=== PATIENT | male | born 1960 | race American Indian/Alaskan Native ===

== ENCOUNTER 2017-03-21 14:24 | Observation (INO) | payer BC ==
--- NOTE | 2017-03-21 15:07 | EDM.PDOC ---
ED HPI GENERAL MEDICAL PROBLEM - General Chief Complaint: Skin Complaint Stated Complaint: ABSCESS Time Seen by Provider: 03/21/17 14:34 Source of Information: Reports: Patient History Limitations: Reports: No Limitations - History of Present Illness INITIAL COMMENTS - FREE TEXT/NARRATIVE: The patient states that he has had pain in his perennial area for the past 2 weeks. The pain is made worse if he sits down. He has felt a lump in the area for the past week. No drainage. No recent fever. No prior similar symptoms. The patient was seen at [facility] earlier today. The patient states that no tests were done. Medical records faxed from [facility] indicate that the patient was prescribed clindamycin 150 mg, 2 caps po Q6h. The patient states that he was given the pills, however, he was instructed not to start the prescription until midnight tonight. The patient was given Dr. Santiago's office number, but was also sent directly to this ED. The patient indicates that he is allergic to penicillin, however, when asked about this, he states that he was told this by his mother, and has no idea what , if any, reaction he has to penicillin. The patient does not have a PCP. Right Rectal Pain Score (Numeric/FACES): 9 - Related Data Allergies Allergy/AdvReac Type Severity Reaction Status Date / Time No Known Allergies Allergy Verified 03/21/17 14:39 Home Meds: Home Meds Gabapentin [Neurontin] 300 mg PO DAILY 03/21/17 [History] Insulin Aspart [Novolog Flexpen] 30 unit SQ DAILY 03/21/17 [History] Insulin Detemir [Levemir Flextouch] 40 unit SQ DAILY 03/21/17 [History] Past Medical History Cardiovascular History: Reports: High Cholesterol, Hypertension Neurological History: Reports: CVA, Neuropathy, Diabetic Endocrine/Metabolic History: Reports: Diabetes, Type II - Past Surgical History HEENT Surgical History: Reports: Oral Surgery (Edentulous), Tonsillectomy GI Surgical History: Reports: Cholecystectomy Musculoskeletal Surgical History: Reports: ORIF (right ankle), Other (See Below ) (Right wrist pinning) Social & Family History - Family History Family Medical History: Noncontributory - Tobacco Use Smoking Status *Q: Current Every Day Smoker Years of Tobacco use: 39 Packs/Tins Daily: 0.2 Packs/Tins Daily Comment: Down from 1 ppd - Alcohol Use Alcohol Use History: Yes Alcohol Use in Last Twelve Months: No - Recreational Drug Use Recreational Drug Use: No - Living Situation & Occupation Living situation: Reports: Single, Alone Occupation: Employed ([employer]) ED ROS GENERAL - Review of Systems Review Of Systems: ROS reveals no pertinent complaints other than HPI. ED EXAM, SKIN/RASH Exam: See Below Exam Limited By: No Limitations General Appearance: Alert, WD/WN, No Apparent Distress Rectal (Males) Exam: Other (Approximately 4 cm diameter area of swelling and induration to the posterior right perineum, with pointing, however, no drainage. Minimal associated erythema. The area is tender to palpation.) Course - Vital Signs Last Recorded V/S: Last Vital Signs Temp 36.6 C 03/21/17 14:36 Pulse 97 03/21/17 14:36 Resp 14 03/21/17 14:36 BP 154/87 H 03/21/17 14:36 Pulse Ox 98 03/21/17 14:36 - Orders/Labs/Meds Orders: Active Orders 24 hr Category Date Time Status Accu Check [Blood Glucose Check, Bedside] [RC] ONETIME Care 03/21/17 15:11 Active Labs: Laboratory Tests 03/21/17 Range/Units 15:23 POC Glucose 296 H (70-105) mg/dL Meds: Medications Discontinued Medications Generic Name Dose Route Start Last Admin Trade Name Gricel PRN Reason Stop Dose Admin Insulin Human Regular 5 unit 03/21/17 15:25 03/21/17 15:33 Humulin R SUBCUT 03/21/17 15:26 5 units ONETIME STA Administration Protocol - Re-Assessments/Exams Free Text/Narrative Re-Assessment/Exam: 03/21/17 15:[address] Santiago at 14:57. Unfortunately, he is not financial operations clerk, and not in the office today. He recommended that I contact Dr. Issa, who is on- call today. Case then discussed with Dr. Issa at 15:02. He is currently in the operating room, but will come by the ED to evaluate the patient when he is finished. 03/21/17 15:26 The patient's Accu-Chek is 296, however, the patient tells us that he ordinarily runs around 300. I do not want to drop the patient's blood sugar down into the 200s, as he would not likely tolerate that well, therefore I have ordered only 5 units regular insulin, in an attempt to reduce his blood sugar down to about 250. 03/21/17 15:47 Dr. Issa is here to evaluate the patient. Departure - Departure Time of Disposition: 15:50 Disposition: DC/Tfer to [facility] Access [facility] Condition: Fair Clinical Impression: Abscess of perineum - Discharge Information - My Orders Last 24 Hours: My Active Orders 03/21/17 15:11 Accu Check [Blood Glucose Check, Bedside] [RC] ONETIME - Assessment/Plan Last 24 Hours: My Active Orders 03/21/17 15:11 Accu Check [Blood Glucose Check, Bedside] [RC] ONETIME
[2017-03-21] MEDS ORDERED: Insulin Regular, Human 100 Units/ML 3 ML Vial SUBCUT STA (15:25)
[2017-03-21] MEDS ORDERED: Lidocaine 1% 30 ML SDV ONE (16:04)
--- NOTE | 2017-03-21 16:14 | PCM.PREANE ---
Preanesthetic Assessment - Procedure Proposed Procedure: perineal abscess removal - Anesthesia/Transfusion/Family Hx Anesthesia History: Prior Anesthesia Without Reaction Family History of Anesthesia Reaction: No Transfusion History: No Prior Transfusion(s) - Review of Systems General: No Symptoms Pulmonary: No Symptoms Cardiovascular: Other (HTN) Gastrointestinal: No Symptoms Neurological: Other (stroke about 6 years ago- does not currently take a blood thinner like he is supposed to.) Other: Reports: Diabetes - Physical Assessment NPO Status Date: 03/21/17 NPO Status Time: 10:30 (eggs and biscuits ) O2 Sat by Pulse Oximetry: 98 Respiratory Rate: 14 Vital Signs: Last Vital Signs Temp 36.6 C 03/21/17 14:36 Pulse 97 03/21/17 14:36 Resp 14 03/21/17 14:36 BP 154/87 H 03/21/17 14:36 Pulse Ox 98 03/21/17 14:36 Height: 1.8 m Weight: 127.006 kg ASA Class: 2E Mental Status: Alert & Oriented x3 Airway Class: Mallampati = 2 Dentition: Reports: Edentulous Thyro-Mental Finger Breadths: 3 Mouth Opening Finger Breadths: 3 ROM/Head Extension: Full Lungs: Clear to Auscultation, Normal Respiratory Effort Cardiovascular: Regular Rate, Regular Rhythm - Lab Values: Laboratory Last Values POC Glucose 296 mg/dL (70-105) H 03/21/17 15:23 - Allergies Allergies/Adverse Reactions: Allergies Allergy/AdvReac Type Severity Reaction Status Date / Time No Known Allergies Allergy Verified 03/21/17 14:39 - Blood Blood Available: No Product(s) Available: None - Anesthesia Plan Pre-Op Medication Ordered: None - Acknowledgements Anesthesia Type Planned: MAC Pt an Appropriate Candidate for the Planned Anesthesia: Yes Alternatives and Risks of Anesthesia Discussed w Pt/Guardian: Yes Pt/Guardian Understands and Agrees with Anesthesia Plan: Yes PreAnesthesia Questionnaire Cardiovascular History: Reports: High Cholesterol, Hypertension Neurological History: Reports: CVA, Neuropathy, Diabetic Endocrine/Metabolic History: Reports: Diabetes, Type II - Past Surgical History HEENT Surgical History: Reports: Oral Surgery (Edentulous), Tonsillectomy GI Surgical History: Reports: Cholecystectomy Musculoskeletal Surgical History: Reports: ORIF (right ankle), Other (See Below ) (Right wrist pinning) - SUBSTANCE USE Smoking Status *Q: Current Every Day Smoker (3cig/day for 6 years) Tobacco Use Within Last Twelve Months: Cigarettes Second Hand Smoke Exposure: No Recreational Drug Use History: No - HOME MEDS Home Medications: Home Meds Gabapentin [Neurontin] 300 mg PO DAILY 03/21/17 [History] Insulin Aspart [Novolog Flexpen] 30 unit SQ DAILY 03/21/17 [History] Insulin Detemir [Levemir Flextouch] 40 unit SQ DAILY 03/21/17 [History] - CURRENT (IN HOUSE) MEDS Current Meds: Current Medications Discontinued Medications Insulin Human Regular (Humulin R) 5 unit SUBCUT ONETIME STA PRN Reason: Protocol Stop: 03/21/17 15:26 Last Admin: 03/21/17 15:33 Dose: 5 units
[2017-03-21] MEDS ORDERED: Midazolam 1 MG/ML 2 ML SDV ONE (16:40)
[2017-03-21] MEDS ORDERED: Propofol 200 MG/20 ML SDV ONE (16:40)
[2017-03-21] MEDS ORDERED: Ketamine 500 mg/10 ML MDV ONE (16:40)
[2017-03-21] MEDS ORDERED: fentaNYL 100 MCG/2 ML SDV ONE (16:40)
[2017-03-21] MEDS ORDERED: Lidocaine 1% 4 ML ONE (17:00)
--- NOTE | 2017-03-21 17:13 | PCM.OPNOTE ---
- General Post-Op/Procedure Note Date of Surgery/Procedure: 03/21/17 Operative Procedure(s): I&D per rectal abscess Pre Op Diagnosis: radha rectal abscess Post-Op Diagnosis: Same Anesthesia Technique: MAC Primary Surgeon: Jaden Issa EBL in mLs: 10 Complications: None Condition: Good
[2017-03-21] MEDS ORDERED: Lactated Ringers 1,000 ML ONE (17:14)
[2017-03-21] MEDS ORDERED: fentaNYL 100 MCG/2 ML SDV IVPUSH PRN (17:22)
--- NOTE | 2017-03-21 17:24 | PCM48HPAN ---
Post Anesthesia Note - EVALUATION WITHIN 48HRS OF ANESTHETIC Vital Signs in Normal Range: Yes Patient Participated in Evaluation: Yes Respiratory Function Stable: Yes Airway Patent: Yes Cardiovascular Function Stable: Yes Hydration Status Stable: Yes Pain Control Satisfactory: Yes Nausea and Vomiting Control Satisfactory: Yes Mental Status Recovered: Yes - COMMENTS/OBSERVATIONS Free Text/Narrative:: patient doing well. Awake following commands. room air. tolerated procedure well
--- NOTE | 2017-03-21 17:34 | PCM.CONS ---
H&P History of Present Illness - General Date of Service: 03/21/17 Admit Problem/Dx: Admission Diagnosis/Problem Admission Diagnosis/Problem Diabetes mellitus type 2 Source of Information: Patient, Old Records, Provider, RN, RN Notes Reviewed, Other History Limitations: Reports: No Limitations - History of Present Illness Initial Comments - Free Text/Narative: Nathaniel Chery is a 57 yo male who presented to our ED today (03/21/17) with pain in his perianal area for the past 2 weeks that is worse when sitting down. He reports feeling a lump in the area but no drainage. Denies recent fever or similar symptoms in the past. He was reportedly seen at [facility] earlier today, however no tests were performed and no labs were obtained. [place] notes which were faxed show that he was prescribed clindamycin 150mg 2 caps Q6hr and told to begin treatment at midnight. He was given Dr. Santiago's office number and told to present to our ED. In the ED he was afebrile with a temp of 36.6 degrees C. Pulse was 97. Respirations 14. BP 154/87. Pulse Ox 98%. Bedside glucose was checked and found to be 296 mg/dl. 5 units of Humulin R were given. A 4cm diameter area of swelling and induration was noted to the posterior right perineum with no drainage and minimal erythema. It was tender to palpation. Dr. Issa, general surgeon, was consulted by ED provider. Nathaniel was taken back to surgical suite for I&D. EBL was 10mL. Labs were ordered by Dr. Issa post-surgical: WBC was elevated at 10.99. Hemoglobin was good at 13.7. Hematocrit 40.6. He is normocytic. Neutrophils were elevated at 68.5%. Sodium was good at 138. Potassium 3.7. Chloride 104. Carbon dioxide 23. Anion gap good at 14.7. BUN 11. Creatinine 0.6. EGFR is greater than 60. Serum glucose was high at 265. A1c was high at 10.4. Calcium good at 8.7. AST was low at 11. ALT good at 33. Alkaline phosphatase elevated at 121. Albumin was low at 3.2. He carries a history of HLD, HTN, CVA approx. 6 years ago, Diabetic neuropathy, and Type II DM. He reportedly is supposed to be taking aspirin, lisinopril, and invokana, however he is not. It also apears he has not been taking his insulin as prescribed. He is a current daily smoker, consuming 3 cigarettes per day for the last 6 years. Hospital medicine is consulted for diabetes management. Right Rectal Pain Score (Numeric/FACES): 9 - Related Data Allergies/Adverse Reactions: Allergies Allergy/AdvReac Type Severity Reaction Status Date / Time No Known Allergies Allergy Verified 03/21/17 19:54 Home Medications: Home Meds Aspirin 81 mg PO DAILY 03/21/17 [History] Gabapentin [Neurontin] 300 mg PO DAILY 03/21/17 [History] Insulin Aspart [Novolog Flexpen] 30 unit SQ DAILY 03/21/17 [History] Insulin Detemir [Levemir Flextouch] 40 unit SQ DAILY 03/21/17 [History] Lisinopril [Prinivil] 10 mg PO DAILY 03/21/17 [History] atorvaSTATin [Lipitor] 10 mg PO BEDTIME 03/21/17 [History] Past Medical History Cardiovascular History: Reports: High Cholesterol, Hypertension Neurological History: Reports: CVA, Neuropathy, Diabetic Endocrine/Metabolic History: Reports: Diabetes, Type II - Past Surgical History HEENT Surgical History: Reports: Oral Surgery (Edentulous), Tonsillectomy GI Surgical History: Reports: Cholecystectomy Musculoskeletal Surgical History: Reports: ORIF (right ankle), Other (See Below ) (Right wrist pinning) Social & Family History - Family History Family Medical History: Noncontributory - Tobacco Use Smoking Status *Q: Current Every Day Smoker (3cig/day for 6 years) Years of Tobacco use: 39 Packs/Tins Daily: 0.2 Second Hand Smoke Exposure: No - Caffeine Use Caffeine Use: Reports: Coffee - Recreational Drug Use Recreational Drug Use: No - Living Situation & Occupation Living situation: Reports: Single, Alone Occupation: Employed ([employer]) H&P Review of Systems - Review of Systems: Review Of Systems: See Below Free Text/Narrative: In to see Nathaniel. He is lying in bed in pain is controlled. We had a lengthy conversation about his diabetes as A1c is quite high. I reviewed his previous clinic notes and it does appear that his A1c has been raising around 1 point per year. I selenium complications of diabetes including worsening peripheral neuropathy, poor circulation, vision problems, and possible amputation. I explained how sugars affect wound healing. Reports his blood sugars normally run around 300 but have been as high as 500. 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 We discussed the option of oral diabetic medications and he states he was on one, however his stomach did not agree with it. I asked if it was metformin and he states "yes it was". I was able to find a list of medications he is prescribed. We went down them one by one. He is currently only taking his long and short acting insulin. He reports he checks his sugars occasionally "when he thinks of it." He also reportedly takes his Levemir at night and NovoLog in the morning one time. He is prescribed Invokana, however he has reported not been taking this for some time because he "forgets to take it." He is also prescribed aspirin, statin, and lisinopril. He reports he hasn't taken these for at least 3 or more months. I explained to him the importance of these drugs. I asked him why he doesn't take them regularly and he states he forgets. I asked him what we could do to make him not forget and he suggested a pillbox. This seems like a reasonable option for him and I suggested he pick one up. We will restart his aspirin, lisinopril, and statin today, as well as his long-acting insulin. I will put him on sliding scale NovoLog and 4 times a day glucose checks to attempt to find a baseline. General: Reports: No Symptoms. Denies: Fever, Chills, Malaise, Weakness, Fatigue HEENT: Reports: No Symptoms. Denies: Dysphasia, Ear Pain, Eye Pain, Headaches, Rhinitis, Sinus Congestion, Sore Throat, Visual Changes Pulmonary: Reports: No Symptoms. Denies: Shortness of Breath, Wheezing, Pleuritic Chest Pain, Cough, Sputum Cardiovascular: Reports: No Symptoms. Denies: Chest Pain, Palpitations, Dyspnea on Exertion, Orthopnea Gastrointestinal: Reports: No Symptoms. Denies: Abdominal Pain, Constipation, Diarrhea, Hematemesis, Hematochezia, Melena, Nausea, Vomiting Genitourinary: Reports: No Symptoms. Denies: Dysuria, Frequency, Burning, Pain , Urgency Musculoskeletal: Reports: No Symptoms, Hand Pain (diabetic neuropathy), Leg Pain (diabetic neuropathy). Denies: Back Pain, Joint Swelling, Muscle Pain, Muscle Stiffness Skin: Reports: Other (Pain in buttocks - s/p I&D) Psychiatric: Reports: No Symptoms Neurological: Reports: No Symptoms Hematologic/Lymphatic: Reports: No Symptoms Immunologic: Reports: No Symptoms Exam - Exam Exam: See Below - Vital Signs Vital Signs: Last Vital Signs Temp 97.8 F 03/21/17 14:36 Pulse 97 03/21/17 14:36 Resp 14 03/21/17 16:18 BP 154/87 H 03/21/17 14:36 Pulse Ox 98 03/21/17 16:18 Weight: 280 lb - Exam Quality Assessment: Other (obese) General: Alert, Oriented, Cooperative. No: Mild Distress HEENT: PERRLA, Hearing Intact, Mucosa Moist & [place], Nares Patent, Normal Nasal Septum, Posterior Pharynx Clear, Conjunctiva Clear, EOMI, EACs Clear, TMs Clear Neck: Supple, Trachea Midline. No: JVD, Thyromegaly Lungs: Clear to Auscultation, Normal Respiratory Effort Cardiovascular: Regular Rate, Regular Rhythm GI/Abdominal Exam: Normal Bowel Sounds, Soft, Non-Tender, No Organomegaly, No Distention, No Abnormal Bruit, No Mass, Pelvis Stable (Male) Exam: Deferred Rectal (Males) Exam: Deferred Back Exam: Normal Inspection, Decreased Range of Motion Peripheral Pulses: 1+: Posterior Tibial (L), Posterior Tibial (R), Dorsalis Pedis (L), Dorsalis Pedis (R), 2+: Radial (L), Radial (R) Skin: Warm, Dry, Other (Bandage on perianal area. Dry and intact. ) Neurological: Cranial Nerves Intact (grossly ) Neuro Extensive - Mental Status: Alert, Oriented x3, Normal Mood/Affect, Normal Cognition, Memory Intact Neuro Extensive - Motor, Sensory, Reflexes: CN II-XII Intact (grossly ) Psychiatric: Alert, Normal Affect, Normal Mood - Patient Data Lab Results Last 24 hrs: Laboratory Results - last 24 hr 03/21/17 Range/Units 15:23 POC Glucose 296 H (70-105) mg/dL Result Diagrams: 03/21/17 17:45 03/21/17 17:45 Consult PN Assessment/Plan POD#: 0 (1) Abscess of perineum SNOMED Code(s): 96935804 Code(s): L02.215 - CUTANEOUS ABSCESS OF PERINEUM Priority: High Current Visit: Yes (2) Status post incision and drainage SNOMED Code(s): 694115820 Code(s): Z98.890 - OTHER SPECIFIED POSTPROCEDURAL STATES Priority: High Current Visit: Yes (3) HLD (hyperlipidemia) SNOMED Code(s): 64377513 Code(s): E78.5 - HYPERLIPIDEMIA, UNSPECIFIED Priority: Medium Current Visit: Yes Qualifiers: Hyperlipidemia type: unspecified Qualified Code(s): E78.5 - Hyperlipidemia , unspecified (4) HTN (hypertension) SNOMED Code(s): 09540976 Code(s): I10 - ESSENTIAL (PRIMARY) HYPERTENSION Priority: Medium Current Visit: Yes Qualifiers: Hypertension type: unspecified Qualified Code(s): I10 - Essential (primary ) hypertension (5) Type II diabetes mellitus SNOMED Code(s): 82836251 Code(s): E11.9 - TYPE 2 DIABETES MELLITUS WITHOUT COMPLICATIONS Priority: High Current Visit: Yes Qualifiers: Diabetes mellitus complication status: with neurologic complications Diabetes mellitus complication detail: with unspecified neuropathy Diabetes mellitus mcc insulin use: with mcc use Qualified Code(s): E11.40 - Type 2 diabetes mellitus with diabetic neuropathy, unspecified; Z79.4 - long-term (current) use of insulin; Z79.4 - critical power install technician (current) use of insulin; Z79.4 - critical power install technician (current) use of insulin; Z79.4 - long-term (current) use of insulin (6) History of CVA (cerebrovascular accident) SNOMED Code(s): 093452377 Code(s): Z86.73 - PRSNL HX OF TIA (TIA), AND CEREB INFRC W/O RESID DEFICITS Priority: Low Current Visit: No (7) Diabetic neuropathy SNOMED Code(s): 304177749 Code(s): E11.40 - TYPE 2 DIABETES MELLITUS WITH DIABETIC NEUROPATHY, UNSP Priority: Medium Current Visit: Yes Qualifiers: Diabetes mellitus type: type 2 Diabetes mellitus complication detail: with other neurological complication Qualified Code(s): E11.49 - Type 2 diabetes mellitus with other diabetic neurological complication (8) Medical non-compliance SNOMED Code(s): 554826690 Code(s): Z91.19 - PATIENT'S NONCOMPLIANCE W OTH MEDICAL TREATMENT AND REGIMEN Priority: Medium Current Visit: Yes (9) Hyperglycemia due to type 2 diabetes mellitus SNOMED Code(s): 923317760923863 Code(s): E11.65 - TYPE 2 DIABETES MELLITUS WITH HYPERGLYCEMIA Priority: High Current Visit: Yes Qualifiers: Diabetes mellitus cost recovery technician insulin use: with mcc use Qualified Code( s): E11.65 - Type 2 diabetes mellitus with hyperglycemia; Z79.4 - critical power install technician ( current) use of insulin; Z79.4 - long-term (current) use of insulin; Z79.4 - long-term (current) use of insulin; Z79.4 - critical power install technician (current) use of insulin (10) Obesity SNOMED Code(s): 757470311 Code(s): E66.9 - OBESITY, UNSPECIFIED Priority: Medium Current Visit: Yes Qualifiers: Obesity type: due to excess calories Obesity classification: adult class 2 (BMI 35 - 39.9) Serious obesity comorbidity presence: with serious comorbidity Body mass index: BMI 39.0-39.9 Qualified Code(s): E66.01 - Morbid (severe) obesity due to excess calories; Z68.39 - Body mass index (BMI) 39.0-39.9, adult; Z68.39 - Body mass index (BMI) 39.0-39.9, adult (11) Tobacco use disorder SNOMED Code(s): 789949019 Code(s): F17.200 - NICOTINE DEPENDENCE, UNSPECIFIED, UNCOMPLICATED Priority : Medium Current Visit: Yes Problem List Initiated/Reviewed/Updated: Yes Plan: I/P Acute: S/p I&D of perirectal abscess -Pain control/management per Dr. 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 Hypertension -BP 154/87 in ED, has continued to be elevated here -Restart home lisinopril -PRN hydralazine -Discussed importance of continuing home med dosage Medical non-compliance -Had lengthy discussion about importance of taking home medications -Discussed getting a pill box so he remembers to take meds -Will need f/u with PCP - needs to establish Chronic: Hyperlipidemia - Restart statin Tobacco use disorder - counseled on smoking cessation Hx/o CVA Diabetic neuropathy - Gabapentin Plan: CM for discharge planning Other orders as indicated above Restart ASA and other home meds Will need follow-up and closer monitoring by PCP as changes in dosing may be required Needs to establish with a PCP Routine AM labs Other orders per primary provider Code Status: Full code; PCP: None. Attending provider: Dr. Issa Thank you for allowing us to participate in the care of this patient!! Requesting Provider: Dr. Issa Date Consult Requested: 03/21/17 Reason for Consult: Medical managment for chronic conditions Patient History Reviewed: Yes Admission H&P Reviewed: Yes Time Spent (in minutes): 60
[2017-03-21] MEDS: Acetaminophen/HYDROcodone 325-5 MG Tab PO PRN ×2 (17:54→22:01)
[2017-03-21] MEDS ORDERED: Pneumococcal Polyvalent-23 Vaccine 0.5 ML SDV IM ONE (20:04)
[2017-03-21] MEDS ORDERED: FLU Vacc QS 2017-18 (6mos UP)/PF 60 MCG/0.5 ML Syringe IM ONE (20:15)
[2017-03-21] MEDS ORDERED: 50% Dextrose in Water 50 ML Syringe IVPUSH PRN (20:16)
[2017-03-21] MEDS ORDERED: hydrALAZINE 20 MG/ML SDV IVPUSH PRN (20:55)
[2017-03-21] MEDS ORDERED: Insulin Aspart 100 Units/ML 3 ML Pen SUBCUT SCH (22:00)
[2017-03-21] MEDS: Aspirin 81 MG Tab.Chew PO SCH (22:01)
[2017-03-21] MEDS: Insulin Aspart 100 Units/ML 3 ML Pen SUBCUT SCH (22:02)
--- NOTE | 2017-03-21 22:17 | HP ---
DATE OF ADMISSION: 03/21/2017 HISTORY OF PRESENT ILLNESS: This is a 57-year-old male who is from [facility], has had 2 weeks area of pain in the perineum. The pain was made worse by sitting down and gradually increased in intensity of the pain. He felt a lump there past week and has come in, seen at the [facility] and was sent here for treatment. The patient indicates that he is allergic to penicillin, but it does not seem to be a true allergy and in fact, probably he does not have that allergy. Denies any nausea, vomiting, any chills or fever. Denies any urinary retention or difficulty having a bowel movement. He has diabetes, has hypertension, had a stroke, but has resolved with no paralysis or weakness. He is a current everyday smoker. Does use alcohol at times. He is employed in the [employer]. FAMILY HISTORY: Not known. CURRENT MEDICATIONS: Per medication reconciliation form. PHYSICAL EXAMINATION: VITAL SIGNS: Reveals a temperature of 36.0, pulse 97, respirations 14, and blood pressure 154/87. EYES: Sclerae white. ORAL CAVITY: Healthy. NECK: Supple. LUNGS: Clear. No rales, rhonchi, fremitus, or dullness. CARDIAC: Heart tones are regular rate. No S3, S4, jugular venous distention. ABDOMEN: Soft. No tenderness, guarding, or rebound. EXTREMITIES: Upper and lower extremities; no angulation deformities and there is some numbness in the feet. RECTAL: Unremarkable, but has swelling on the right perianal area which is anterior. It is tender. NEUROLOGIC: III through XII intact. No sensorineural deficit. SKIN: Warm and dry. PSYCHIATRIC: He is alert and cooperative. ASSESSMENT: Diabetes, hypertension, and perirectal abscess. PLAN: For I and D of perirectal abscess. Discussed this with the patient. Need for packing and to follow up in [place]. The risks and complications discussed. He understands and consents. MMODAL /[id number]
[2017-03-22] MEDS: Acetaminophen/HYDROcodone 325-5 MG Tab PO PRN ×3 (02:25→11:39)
--- NOTE | 2017-03-22 06:51 | OR ---
DATE OF OPERATION: 03/21/2017 SURGEON: Jaden Issa MD PREOPERATIVE DIAGNOSIS: Perirectal abscess. POSTOPERATIVE DIAGNOSIS: Perirectal abscess. OPERATION PERFORMED: Incision and drainage under IV sedation and 1% Xylocaine. FINDINGS: Perirectal abscess without any connection to the rectum. It was located on the right anterior surface. DESCRIPTION OF PROCEDURE: The patient was taken to the operating room, placed in the supine position, connected to monitoring equipment, given IV sedation, placed in the lithotomy position and the perianal area was prepped. The abscess was identified and the area was prepped with Betadine and draped off in a sterile fashion. The abscess was identified by its nodular mass it was projecting. The skin was anesthetized over this mass with 1% Xylocaine. Using a knife, it was drained. The area of loculations was broke up and adhesions. This was followed by cautery to skin surface to control bleeding, 1 suture ligature, 3-0 Vicryl suture, and it was packed with an inch gauze. The patient tolerated the procedure and sent to recovery room in a stable condition. Because of his diabetes about 300, we will keep him in overnight for a diabetic control. ANESTHESIA: ESTIMATED BLOOD LOSS: 10 mL. MMODAL /[id number] MTDLiv
[2017-03-22] MEDS: Aspirin 81 MG Tab.Chew PO SCH (08:36)
[2017-03-22] MEDS: Insulin Aspart 100 Units/ML 3 ML Pen SUBCUT SCH ×2 (08:38→11:41)
[2017-03-22] MEDS ORDERED: Insulin Detemir 100 Units/ML 3 ML Pen SUBCUT SCH (09:00)
[2017-03-22] MEDS ORDERED: Gabapentin 300 MG Cap PO SCH (09:00)
[2017-03-22] MEDS ORDERED: Lisinopril 10 MG Tab PO SCH (09:00)
--- NOTE | 2017-03-22 09:26 | PCM.CONSN ---
- General Info Date of Service: 03/22/17 Admission Dx/Problem (Free Text): Admission Diagnosis/Problem Admission Diagnosis/Problem Diabetes mellitus type 2 Nathaniel is seen this morning resting comfortably in bed, states pain is much improved to buttock s/p I&D with Dr. Issa yesterday. Blood sugars are 211-315 the past 12 hours. He voices no c/o or concerns, ate a good breakfast and slept well. He is up and ambulatory. Functional Status: Reports: Pain Controlled, Tolerating Diet, Ambulating, Urinating. Denies: New Symptoms - Review of Systems General: Reports: No Symptoms. Denies: Fever, Weakness HEENT: Reports: No Symptoms Pulmonary: Reports: No Symptoms. Denies: Cough Cardiovascular: Reports: No Symptoms. Denies: Chest Pain Gastrointestinal: Reports: No Symptoms. Denies: Abdominal Pain, Diarrhea, Nausea, Vomiting Genitourinary: Reports: No Symptoms Musculoskeletal: Reports: Leg Pain (neuropathy pain to bilat LE) Skin: Reports: Other (incisional pain to buttock) Neurological: Reports: Paresthesia (periph neuropathy) Psychiatric: Reports: No Symptoms - Patient Data Vitals - Most Recent: Last Vital Signs Temp 97.9 F 03/22/17 07:40 Pulse 70 03/22/17 07:41 Resp 17 03/22/17 07:40 BP 111/67 03/22/17 08:36 Pulse Ox 95 03/22/17 07:41 Weight - Most Recent: 230 lb 1.6 oz I&O - Last 24 Hours: Intake & Output 03/21/17 03/22/17 03/22/17 22:59 06:59 14:59 Intake Total 750 450 Output Total 750 950 Balance 0 -500 Lab Results Last 24 Hours: Laboratory Results - last 24 hr 03/21/17 03/21/17 03/21/17 Range/Units 17:45 17:45 17:45 WBC 10.99 H (4.23-9.07) K/mm3 RBC 4.77 (4.63-6.08) M/mm3 Hgb 13.7 (13.7-17.5) gm/L Hct 40.6 (40.1-51.0) % MCV 85.1 (79.0-92.2) fl MCH 28.7 (25.7-32.2) pg MCHC 33.7 (32.2-35.5) g/dl RDW Std Deviation 39.5 (35.1-43.9) fL Plt Count 196 (163-337) K/mm3 MPV 10.5 (9.4-12.3) fl Neut % (Auto) 68.5 H (34.0-67.9) % Lymph % (Auto) 15.9 L (21.8-53.1) % [place] % (Auto) 11.0 (5.3-12.2) % Eos % (Auto) 4.0 (0.8-7.0) Baso % (Auto) 0.2 (0.1-1.2) % Neut # (Auto) 7.53 H (1.78-5.38) K/mm3 Lymph # (Auto) 1.75 (1.32-3.57) K/mm3 [place] # (Auto) 1.21 H (0.30-0.82) K/mm3 Eos # (Auto) 0.44 (0.04-0.54) K/mm3 Baso # (Auto) 0.02 (0.01-0.08) K/mm3 Sodium 138 (136-145) mEq/L Potassium 3.7 (3.5-5.1) mEq/L Chloride 104 (98-107) mEq/L Carbon Dioxide 23 (21-32) mEq/L Anion Gap 14.7 (5-15) BUN 11 (7-18) mg/dL Creatinine 0.6 L (0.7-1.3) mg/dL Est Cr Clr Drug Dosing 148.16 mL/min Estimated GFR (MDRD) > 60 (>60) mL/min BUN/Creatinine Ratio 18.3 H (14-18) Glucose 265 H (74-106) mg/dL POC Glucose (70-105) mg/dL Hemoglobin A1c 10.40 H (4.50-6.20) % Calcium 8.7 (8.5-10.1) mg/dL Total Bilirubin 0.4 (0.2-1.0) mg/dL AST 11 L (15-37) U/L ALT 33 (16-63) U/L Alkaline Phosphatase 121 H (46-116) U/L Total Protein 6.8 (6.4-8.2) g/dl Albumin 3.2 L (3.4-5.0) g/dl Globulin 3.6 gm/dL Albumin/Globulin Ratio 0.9 L (1-2) 03/21/17 03/22/17 Range/Units 21:39 06:53 WBC (4.23-9.07) K/mm3 RBC (4.63-6.08) M/mm3 Hgb (13.7-17.5) gm/L Hct (40.1-51.0) % MCV (79.0-92.2) fl MCH (25.7-32.2) pg MCHC (32.2-35.5) g/dl RDW Std Deviation (35.1-43.9) fL Plt Count (163-337) K/mm3 MPV (9.4-12.3) fl Neut % (Auto) (34.0-67.9) % Lymph % (Auto) (21.8-53.1) % [place] % (Auto) (5.3-12.2) % Eos % (Auto) (0.8-7.0) Baso % (Auto) (0.1-1.2) % Neut # (Auto) (1.78-5.38) K/mm3 Lymph # (Auto) (1.32-3.57) K/mm3 [place] # (Auto) (0.30-0.82) K/mm3 Eos # (Auto) (0.04-0.54) K/mm3 Baso # (Auto) (0.01-0.08) K/mm3 Sodium (136-145) mEq/L Potassium (3.5-5.1) mEq/L Chloride (98-107) mEq/L Carbon Dioxide (21-32) mEq/L Anion Gap (5-15) BUN (7-18) mg/dL Creatinine (0.7-1.3) mg/dL Est Cr Clr Drug Dosing mL/min Estimated GFR (MDRD) (>60) mL/min BUN/Creatinine Ratio (14-18) Glucose (74-106) mg/dL POC Glucose 315 H 211 H (70-105) mg/dL Hemoglobin A1c (4.50-6.20) % Calcium (8.5-10.1) mg/dL Total Bilirubin (0.2-1.0) mg/dL AST (15-37) U/L ALT (16-63) U/L Alkaline Phosphatase (46-116) U/L Total Protein (6.4-8.2) g/dl Albumin (3.4-5.0) g/dl Globulin gm/dL Albumin/Globulin Ratio (1-2) Med Orders - Current: Current Medications Hydrocodone Bitart/Acetaminophen ([place] 325-5 Mg) 1 tab PO Q4H PRN PRN Reason: Pain Last Admin: 03/22/17 07:04 Dose: 1 tab Aspirin (Aspirin) 81 mg PO DAILY [facility] Last Admin: 03/22/17 08:36 Dose: 81 mg Dextrose/Water (Dextrose 50% In Water) 50 ml IVPUSH ASDIRECTED PRN PRN Reason: hypoglycemia Gabapentin (Neurontin) 300 mg PO DAILY [facility] Last Admin: 03/22/17 08:36 Dose: 300 mg Hydralazine HCl (Apresoline) 10 mg IVPUSH Q6H PRN PRN Reason: Hypertension Insulin Aspart (Novolog) 0 unit SUBCUT QIDACANDBED [facility] PRN Reason: Protocol Last Admin: 03/22/17 08:38 Dose: 4 units Insulin Detemir (Levemir) 40 unit SUBCUT DAILY [facility] Last Admin: 03/22/17 08:37 Dose: 40 units Lisinopril (Prinivil) 10 mg PO DAILY [facility] Last Admin: 03/22/17 08:36 Dose: 10 mg Simvastatin (Zocor) 10 mg PO BEDTIME [facility] Discontinued Medications Dibucaine (Nupercainal 1% Oint) Confirm Administered Dose 28.35 gm .ROUTE .STK- MED ONE Stop: 03/21/17 16:05 Fentanyl (Sublimaze) Confirm Administered Dose 100 mcg .ROUTE .STK-MED ONE Stop: 03/21/17 16:41 Fentanyl (Sublimaze) 50 mcg IVPUSH Q5M PRN PRN Reason: Pain Lidocaine HCl (Xylocaine-Mpf 1%) Confirm Administered Dose 4 mls @ as directed .ROUTE .STK-MED ONE Stop: 03/21/17 17:01 Lactated Ringer's (Ringers, Lactated) Confirm Administered Dose 1,000 mls @ as directed .ROUTE .STK-MED ONE Stop: 03/21/17 17:15 Influenza Virus Vaccine (Pharmacy To Dose - Influenza Vaccine) 1 each IM ONETIME ONE Stop: 03/21/17 20:05 Influenza Virus Vaccine (Flulaval Quad [id number]) 60 mcg IM .ONCE ONE Stop: 03/21/17 20:16 Insulin Aspart (Novolog) 0 unit SUBCUT QIDACANDBED [facility] PRN Reason: Protocol Insulin Human Regular (Humulin R) 5 unit SUBCUT ONETIME STA PRN Reason: Protocol Stop: 03/21/17 15:26 Last Admin: 03/21/17 15:33 Dose: 5 units Ketamine HCl (Ketalar) Confirm Administered Dose 500 mg .ROUTE .STK-MED ONE Stop: 03/21/17 16:41 Lidocaine HCl (Xylocaine-Mpf 1%) Confirm Administered Dose 30 ml .ROUTE .STK- MED ONE Stop: 03/21/17 16:05 Last Admin: 03/21/17 16:51 Dose: 1 ml Midazolam HCl (Versed 1 Mg/Ml) Confirm Administered Dose 2 mg .ROUTE .STK-MED ONE Stop: 03/21/17 16:41 Pneumococcal Polyvalent Vaccine (Pneumovax 23) 0.5 ml IM .ONCE ONE Stop: 03/21/17 20:05 Propofol (Diprivan 20 Ml) Confirm Administered Dose 200 mg .ROUTE .STK-MED ONE Stop: 03/21/17 16:41 - Exam Quality Assessment: DVT Prophylaxis General: Alert, Oriented, Cooperative, No Acute Distress HEENT: Pupils Equal, EOMI, Mucous Membr. Moist/[place] Neck: Supple Lungs: Clear to Auscultation, Normal Respiratory Effort Cardiovascular: Regular Rate, Regular Rhythm, No Murmurs GI/Abdominal Exam: Normal Bowel Sounds, Soft, Non-Tender (Male) Exam: Deferred Extremities: Normal Inspection, No Pedal Edema, Normal Capillary Refill, Other ( scarring to bilat LE/shins from prior wounds, ? DM ulcers. No open or reddened areas currently ) Peripheral Pulses: 1+: Dorsalis Pedis (L), Dorsalis Pedis (R) Neurological: No New Focal Deficit Psy/Mental Status: Alert, Normal Affect, Normal Mood Consult PN Assessment/Plan POD#: 1 (1) Abscess of perineum SNOMED Code(s): 61741040 Code(s): L02.215 - CUTANEOUS ABSCESS OF PERINEUM Priority: High Current Visit: Yes (2) Status post incision and drainage SNOMED Code(s): 785472609 Code(s): Z98.890 - OTHER SPECIFIED POSTPROCEDURAL STATES Priority: High Current Visit: Yes (3) Type II diabetes mellitus SNOMED Code(s): 77111368 Code(s): E11.9 - TYPE 2 DIABETES MELLITUS WITHOUT COMPLICATIONS Priority: High Current Visit: Yes Qualifiers: Diabetes mellitus complication status: with neurologic complications Diabetes mellitus complication detail: with unspecified neuropathy 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 Qualified Code(s): E11.40 - Type 2 diabetes mellitus with diabetic neuropathy, unspecified; Z79.4 - assisted (current) use of insulin; Z79.4 - assisted (current) use of insulin; Z79.4 - emt intermediate (current) use of insulin; Z79.4 - emt intermediate (current) use of insulin (4) HTN (hypertension) SNOMED Code(s): 75469223 Code(s): I10 - ESSENTIAL (PRIMARY) HYPERTENSION Priority: Medium Current Visit: Yes Qualifiers: Hypertension type: unspecified Qualified Code(s): I10 - Essential (primary ) hypertension (5) HLD (hyperlipidemia) SNOMED Code(s): 98766617 Code(s): E78.5 - HYPERLIPIDEMIA, UNSPECIFIED Priority: Medium Current Visit: Yes Qualifiers: Hyperlipidemia type: unspecified Qualified Code(s): E78.5 - Hyperlipidemia , unspecified (6) Diabetic neuropathy SNOMED Code(s): 043431193 Code(s): E11.40 - TYPE 2 DIABETES MELLITUS WITH DIABETIC NEUROPATHY, UNSP Priority: Medium Current Visit: Yes Qualifiers: Diabetes mellitus type: type 2 Diabetes mellitus complication detail: with other neurological complication Qualified Code(s): E11.49 - Type 2 diabetes mellitus with other diabetic neurological complication (7) Medical non-compliance SNOMED Code(s): 120919730 Code(s): Z91.19 - PATIENT'S NONCOMPLIANCE W OTH MEDICAL TREATMENT AND REGIMEN Priority: Medium Current Visit: Yes (8) Hyperglycemia due to type 2 diabetes mellitus SNOMED Code(s): 602267767547238 Code(s): E11.65 - TYPE 2 DIABETES MELLITUS WITH HYPERGLYCEMIA Priority: High Current Visit: Yes Qualifiers: Diabetes mellitus mcc insulin use: with mcc use Qualified Code( s): E11.65 - Type 2 diabetes mellitus with hyperglycemia; Z79.4 - assisted ( current) use of insulin; Z79.4 - emt intermediate (current) use of insulin; Z79.4 - emt intermediate (current) use of insulin; Z79.4 - emt intermediate (current) use of insulin (9) History of CVA (cerebrovascular accident) SNOMED Code(s): 143930607 Code(s): Z86.73 - PRSNL HX OF TIA (TIA), AND CEREB INFRC W/O RESID DEFICITS Priority: Low Current Visit: No (10) Obesity SNOMED Code(s): 438303318 Code(s): E66.9 - OBESITY, UNSPECIFIED Priority: Medium Current Visit: Yes Qualifiers: Obesity type: due to excess calories Obesity classification: adult class 2 (BMI 35 - 39.9) Serious obesity comorbidity presence: with serious comorbidity Body mass index: BMI 39.0-39.9 Qualified Code(s): E66.01 - Morbid (severe) obesity due to excess calories; Z68.39 - Body mass index (BMI) 39.0-39.9, adult; Z68.39 - Body mass index (BMI) 39.0-39.9, adult (11) Tobacco use disorder SNOMED Code(s): 293682807 Code(s): F17.200 - NICOTINE DEPENDENCE, UNSPECIFIED, UNCOMPLICATED Priority : Medium Current Visit: Yes Problem List Initiated/Reviewed/Updated: Yes My Orders Last 24 Hours: My Active Orders 03/22/17 09:21 BASIC METABOLIC PANEL,BMP [CHEM] Urgent CBC WITH AUTO DIFF [HEME] Urgent MAGNESIUM [CHEM] Urgent Plan: I/P Acute: S/p I&D of perirectal abscess, POD #1 -Pain control/management per Dr. 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 Hypertension -BP 154/87 in ED, has continued to be elevated here -Restart home lisinopril; PRN hydralazine -Discussed importance of continuing home med dosage, compliance Medical non-compliance -Had lengthy discussion about importance of taking home medications; Discussed getting a pill box so he remembers to take meds -Will need f/u with PCP - needs to establish Chronic: Hyperlipidemia - Restart statin Tobacco use disorder - counseled on smoking cessation, nicotine patch Hx/o CVA Diabetic neuropathy - Gabapentin Plan: CM for discharge planning Other orders as indicated above Restart ASA and other home meds Will need follow-up and closer monitoring by PCP as changes in dosing may be required Needs to establish with a PCP Routine AM labs Other orders per primary provider Code Status: Full code; PCP: None. Attending provider: Dr. Issa
[2017-03-22] MEDS ORDERED: Nicotine 14 MG/24 Hr Patch TRDERM SCH (09:30)
--- NOTE | 2017-03-22 10:47 | PCM.SURGPN ---
- General Info Date of Service: 03/22/17 - Patient Data Vitals - Most Recent: Last Vital Signs Temp 97.9 F 03/22/17 07:40 Pulse 70 03/22/17 07:41 Resp 17 03/22/17 07:40 BP 111/67 03/22/17 08:36 Pulse Ox 95 03/22/17 07:41 Weight - Most Recent: 104.372 kg I&O - Last 24 Hours: Intake & Output 03/21/17 03/22/17 03/22/17 23:59 07:59 15:59 Intake Total 750 450 Output Total 750 950 Balance 0 -500 Lab Results Last 24 Hrs: Laboratory Results - last 24 hr 03/21/17 03/21/17 03/21/17 Range/Units 17:45 17:45 17:45 WBC 10.99 H (4.23-9.07) K/mm3 RBC 4.77 (4.63-6.08) M/mm3 Hgb 13.7 (13.7-17.5) gm/L Hct 40.6 (40.1-51.0) % MCV 85.1 (79.0-92.2) fl MCH 28.7 (25.7-32.2) pg MCHC 33.7 (32.2-35.5) g/dl RDW Std Deviation 39.5 (35.1-43.9) fL Plt Count 196 (163-337) K/mm3 MPV 10.5 (9.4-12.3) fl Neut % (Auto) 68.5 H (34.0-67.9) % Lymph % (Auto) 15.9 L (21.8-53.1) % [place] % (Auto) 11.0 (5.3-12.2) % Eos % (Auto) 4.0 (0.8-7.0) Baso % (Auto) 0.2 (0.1-1.2) % Neut # (Auto) 7.53 H (1.78-5.38) K/mm3 Lymph # (Auto) 1.75 (1.32-3.57) K/mm3 [place] # (Auto) 1.21 H (0.30-0.82) K/mm3 Eos # (Auto) 0.44 (0.04-0.54) K/mm3 Baso # (Auto) 0.02 (0.01-0.08) K/mm3 Sodium 138 (136-145) mEq/L Potassium 3.7 (3.5-5.1) mEq/L Chloride 104 (98-107) mEq/L Carbon Dioxide 23 (21-32) mEq/L Anion Gap 14.7 (5-15) BUN 11 (7-18) mg/dL Creatinine 0.6 L (0.7-1.3) mg/dL Est Cr Clr Drug Dosing 148.16 mL/min Estimated GFR (MDRD) > 60 (>60) mL/min BUN/Creatinine Ratio 18.3 H (14-18) Glucose 265 H (74-106) mg/dL POC Glucose (70-105) mg/dL Hemoglobin A1c 10.40 H (4.50-6.20) % Calcium 8.7 (8.5-10.1) mg/dL Magnesium (1.8-2.4) mg/dl Total Bilirubin 0.4 (0.2-1.0) mg/dL AST 11 L (15-37) U/L ALT 33 (16-63) U/L Alkaline Phosphatase 121 H (46-116) U/L Total Protein 6.8 (6.4-8.2) g/dl Albumin 3.2 L (3.4-5.0) g/dl Globulin 3.6 gm/dL Albumin/Globulin Ratio 0.9 L (1-2) 03/21/17 03/22/17 03/22/17 Range/Units 21:39 06:53 09:33 WBC 8.96 (4.23-9.07) K/mm3 RBC 4.88 (4.63-6.08) M/mm3 Hgb 14.1 (13.7-17.5) gm/L Hct 41.8 (40.1-51.0) % MCV 85.7 (79.0-92.2) fl MCH 28.9 (25.7-32.2) pg MCHC 33.7 (32.2-35.5) g/dl RDW Std Deviation 39.6 (35.1-43.9) fL Plt Count 206 (163-337) K/mm3 MPV 10.5 (9.4-12.3) fl Neut % (Auto) 67.7 (34.0-67.9) % Lymph % (Auto) 16.4 L (21.8-53.1) % [place] % (Auto) 9.4 (5.3-12.2) % Eos % (Auto) 5.8 (0.8-7.0) Baso % (Auto) 0.1 (0.1-1.2) % Neut # (Auto) 6.07 H (1.78-5.38) K/mm3 Lymph # (Auto) 1.47 (1.32-3.57) K/mm3 [place] # (Auto) 0.84 H (0.30-0.82) K/mm3 Eos # (Auto) 0.52 (0.04-0.54) K/mm3 Baso # (Auto) 0.01 (0.01-0.08) K/mm3 Sodium (136-145) mEq/L Potassium (3.5-5.1) mEq/L Chloride (98-107) mEq/L Carbon Dioxide (21-32) mEq/L Anion Gap (5-15) BUN (7-18) mg/dL Creatinine (0.7-1.3) mg/dL Est Cr Clr Drug Dosing mL/min Estimated GFR (MDRD) (>60) mL/min BUN/Creatinine Ratio (14-18) Glucose (74-106) mg/dL POC Glucose 315 H 211 H (70-105) mg/dL Hemoglobin A1c (4.50-6.20) % Calcium (8.5-10.1) mg/dL Magnesium (1.8-2.4) mg/dl Total Bilirubin (0.2-1.0) mg/dL AST (15-37) U/L ALT (16-63) U/L Alkaline Phosphatase (46-116) U/L Total Protein (6.4-8.2) g/dl Albumin (3.4-5.0) g/dl Globulin gm/dL Albumin/Globulin Ratio (1-2) 03/22/17 Range/Units 09:33 WBC (4.23-9.07) K/mm3 RBC (4.63-6.08) M/mm3 Hgb (13.7-17.5) gm/L Hct (40.1-51.0) % MCV (79.0-92.2) fl MCH (25.7-32.2) pg MCHC (32.2-35.5) g/dl RDW Std Deviation (35.1-43.9) fL Plt Count (163-337) K/mm3 MPV (9.4-12.3) fl Neut % (Auto) (34.0-67.9) % Lymph % (Auto) (21.8-53.1) % [place] % (Auto) (5.3-12.2) % Eos % (Auto) (0.8-7.0) Baso % (Auto) (0.1-1.2) % Neut # (Auto) (1.78-5.38) K/mm3 Lymph # (Auto) (1.32-3.57) K/mm3 [place] # (Auto) (0.30-0.82) K/mm3 Eos # (Auto) (0.04-0.54) K/mm3 Baso # (Auto) (0.01-0.08) K/mm3 Sodium 137 (136-145) mEq/L Potassium 4.2 (3.5-5.1) mEq/L Chloride 102 (98-107) mEq/L Carbon Dioxide 25 (21-32) mEq/L Anion Gap 14.2 (5-15) BUN 8 (7-18) mg/dL Creatinine 0.8 (0.7-1.3) mg/dL Est Cr Clr Drug Dosing 111.12 mL/min Estimated GFR (MDRD) > 60 (>60) mL/min BUN/Creatinine Ratio 10.0 L (14-18) Glucose 341 H (74-106) mg/dL POC Glucose (70-105) mg/dL Hemoglobin A1c (4.50-6.20) % Calcium 8.7 (8.5-10.1) mg/dL Magnesium 1.7 L (1.8-2.4) mg/dl Total Bilirubin (0.2-1.0) mg/dL AST (15-37) U/L ALT (16-63) U/L Alkaline Phosphatase (46-116) U/L Total Protein (6.4-8.2) g/dl Albumin (3.4-5.0) g/dl Globulin gm/dL Albumin/Globulin Ratio (1-2) Med Orders - Current: Current Medications Hydrocodone Bitart/Acetaminophen ([place] 325-5 Mg) 1 tab PO Q4H PRN PRN Reason: Pain Last Admin: 03/22/17 07:04 Dose: 1 tab Aspirin (Aspirin) 81 mg PO DAILY [facility] Last Admin: 03/22/17 08:36 Dose: 81 mg Dextrose/Water (Dextrose 50% In Water) 50 ml IVPUSH ASDIRECTED PRN PRN Reason: hypoglycemia Gabapentin (Neurontin) 300 mg PO DAILY [facility] Last Admin: 03/22/17 08:36 Dose: 300 mg Hydralazine HCl (Apresoline) 10 mg IVPUSH Q6H PRN PRN Reason: Hypertension Insulin Aspart (Novolog) 0 unit SUBCUT QIDACANDBED [facility] PRN Reason: Protocol Last Admin: 03/22/17 08:38 Dose: 4 units Insulin Detemir (Levemir) 40 unit SUBCUT DAILY [facility] Last Admin: 03/22/17 08:37 Dose: 40 units Lisinopril (Prinivil) 10 mg PO DAILY [facility] Last Admin: 03/22/17 08:36 Dose: 10 mg Miscellaneous Information (Remove Patch) 0 ea TRDERM DAILY [facility] Nicotine (Habitrol) 14 mg TRDERM DAILY [facility] Simvastatin (Zocor) 10 mg PO BEDTIME [facility] Discontinued Medications Dibucaine (Nupercainal 1% Oint) Confirm Administered Dose 28.35 gm .ROUTE .STK- MED ONE Stop: 03/21/17 16:05 Fentanyl (Sublimaze) Confirm Administered Dose 100 mcg .ROUTE .STK-MED ONE Stop: 03/21/17 16:41 Fentanyl (Sublimaze) 50 mcg IVPUSH Q5M PRN PRN Reason: Pain Lidocaine HCl (Xylocaine-Mpf 1%) Confirm Administered Dose 4 mls @ as directed .ROUTE .STK-MED ONE Stop: 03/21/17 17:01 Lactated Ringer's (Ringers, Lactated) Confirm Administered Dose 1,000 mls @ as directed .ROUTE .STK-MED ONE Stop: 03/21/17 17:15 Influenza Virus Vaccine (Pharmacy To Dose - Influenza Vaccine) 1 each IM ONETIME ONE Stop: 03/21/17 20:05 Influenza Virus Vaccine (Flulaval Quad [id number]) 60 mcg IM .ONCE ONE Stop: 03/21/17 20:16 Insulin Aspart (Novolog) 0 unit SUBCUT QIDACANDBED [facility] PRN Reason: Protocol Insulin Human Regular (Humulin R) 5 unit SUBCUT ONETIME [facility] PRN Reason: Protocol Stop: 03/21/17 15:26 Last Admin: 03/21/17 15:33 Dose: 5 units Ketamine HCl (Ketalar) Confirm Administered Dose 500 mg .ROUTE .STK-MED ONE Stop: 03/21/17 16:41 Lidocaine HCl (Xylocaine-Mpf 1%) Confirm Administered Dose 30 ml .ROUTE .STK- MED ONE Stop: 03/21/17 16:05 Last Admin: 03/21/17 16:51 Dose: 1 ml Midazolam HCl (Versed 1 Mg/Ml) Confirm Administered Dose 2 mg .ROUTE .STK-MED ONE Stop: 03/21/17 16:41 Pneumococcal Polyvalent Vaccine (Pneumovax 23) 0.5 ml IM .ONCE ONE Stop: 03/21/17 20:05 Propofol (Diprivan 20 Ml) Confirm Administered Dose 200 mg .ROUTE .STK-MED ONE Stop: 03/21/17 16:41 - Problem List Review Problem List Initiated/Reviewed/Updated: Yes - My Orders Last 24 Hours: Active Orders 24 hr Category Date Time Status Blood Glucose Check, Bedside [RC] QIDACANDBED Care 03/21/17 20:16 Active Ready for Discharge [RC] PER UNIT ROUTINE Care 03/22/17 10:45 Ordered Consult to Case Management [CONS] Routine Cons 03/21/17 21:36 Active Consult to [employer] Service [employer] Dist[employer] [Consult to Diabetic Nurse Cons 03/21/17 20:56 Active Specialist] [CONS] Routine Aspirin Med 03/21/17 21:15 Active 81 mg PO DAILY Dextrose 50% in Water Med 03/21/17 20:16 Active 50 ml IVPUSH ASDIRECTED PRN Insulin Aspart [NovoLOG] Med 03/21/17 22:00 Active See Protocol SUBCUT QIDACANDBED Insulin Detemir [Levemir] Med 03/22/17 09:00 Active 40 unit SUBCUT DAILY Lisinopril [Prinivil] Med 03/22/17 09:00 Active 10 mg PO DAILY Nicotine [Habitrol] Med 03/22/17 09:30 Active 14 mg TRDERM DAILY Remove Patch Med 03/23/17 09:00 Active 0 ea TRDERM DAILY Simvastatin [Zocor] Med 03/22/17 21:00 Active 10 mg PO BEDTIME hydrALAZINE [Apresoline] Med 03/21/17 20:55 Active 10 mg IVPUSH Q6H PRN Code Status [Resuscitation Status] Routine Resus Stat 03/21/17 21:05 Ordered Medication Orders Hydrocodone Bitart/Acetaminophen (Alpine 325-5 Mg) 1 tab PO Q4H PRN PRN Reason: Pain Last Admin: 03/22/17 07:04 Dose: 1 tab Admin: 03/22/17 02:25 Dose: 1 tab Admin: 03/21/17 22:01 Dose: 1 tab Admin: 03/21/17 17:54 Dose: 1 tab Aspirin (Aspirin) 81 mg PO DAILY [facility] Last Admin: 03/22/17 08:36 Dose: 81 mg Admin: 03/21/17 22:01 Dose: 81 mg Dextrose/Water (Dextrose 50% In Water) 50 ml IVPUSH ASDIRECTED PRN PRN Reason: hypoglycemia Gabapentin (Neurontin) 300 mg PO DAILY [facility] Last Admin: 03/22/17 08:36 Dose: 300 mg Hydralazine HCl (Apresoline) 10 mg IVPUSH Q6H PRN PRN Reason: Hypertension Insulin Aspart (Novolog) 0 unit SUBCUT QIDACANDBED [facility] PRN Reason: Protocol Last Admin: 03/22/17 08:38 Dose: 4 units Admin: 03/21/17 22:02 Dose: 8 units Insulin Detemir (Levemir) 40 unit SUBCUT DAILY [facility] Last Admin: 03/22/17 08:37 Dose: 40 units Lisinopril (Prinivil) 10 mg PO DAILY [facility] Last Admin: 03/22/17 08:36 Dose: 10 mg Miscellaneous Information (Remove Patch) 0 ea TRDERM DAILY [facility] Nicotine (Habitrol) 14 mg TRDERM DAILY [facility] Simvastatin (Zocor) 10 mg PO BEDTIME [facility] - Plan Plan (Free Text/Narrative):: discharge dictated [facility]
[2017-03-22] MEDS ORDERED: Simvastatin 10 MG Tab PO SCH (21:00)
--- NOTE | 2017-03-23 09:01 | DISCH ---
ADMISSION DATE: 03/21/2017 DISCHARGE DATE: 03/22/2017 This is a 57-year-old male who came into the emergency room with a buttock abscess perianal on the right anterior area that had been fast developing over the last 2 weeks and it was quite painful. He wished something done. His medical problems are that of diabetes. PHYSICAL EXAMINATION: GENERAL: He showed a small egg-like swelling over the right anterior perianal area. HEART AND LUNGS: Clear. ABDOMEN: Soft. EXTREMITIES: Upper and lower extremities, no angulation deformities. Some numbness in the lower extremities. HOSPITAL COURSE: The patient was brought into the emergency room, seen in the emergency room and then brought to the operating room where under IV sedation the abscess was drained and packed. He was placed in the hospital and his diabetes managed by the hospitalist. The patient reached maximum hospital benefit the following day, packing was removed, the area was repacked and was discussed the management of his abscess and that he follow up with [facility] in [place]. Examination at the time of admission showed a clean abscess, opening of about 2.5 to 3 cm. No further drainage at this time. Heart and lungs were unremarkable. The patient was eating, up and ambulating. He reached maximum hospital benefit and discharged for followup in the outpatient setting up in [place]. DIET: Diabetic diet on discharge. WORK: May return to work on Sunday at his place of employment in [facility]. 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 DISCHARGE MEDICATIONS: Per medication reconciliation form. We will send him with a script for Vicodin and continue his gabapentin and insulin. CONDITION ON DISCHARGE: Improved. FINAL DIAGNOSIS: 1. Diabetes. Diabetes with blood sugars in the 300 range. Managed by the hospitalist. 2. Perianal abscess status post I and D. ACTIVITY: FOLLOW-UP: [id number] /[id number]
== END 2017-03-22 15:48 | disposition home or self-care (01) ==
LOC: JD.ED 14:24 → JD.SDS 16:17 → JD.MS 17:22
PROVIDERS: ADMIT Surgery; ATTEND Surgery
DX: K61.1 Rectal abscess (principal); I10 Essential (primary) hypertension; E78.5 Hyperlipidemia, unspecified; F17.210 Nicotine dependence, cigarettes, uncomplicated; E11.42 Type 2 diabetes mellitus with diabetic polyneuropathy; E11.49 Type 2 diabetes mellitus with other diabetic neurological complication; E66.9 Obesity, unspecified; E11.65 Type 2 diabetes mellitus with hyperglycemia; L02.215 Cutaneous abscess of perineum; Z88.0 Allergy status to penicillin; Z86.73 Personal history of transient ischemic attack (TIA), and cerebral infarction without residual deficits; Z79.82 Long term (current) use of aspirin; Z79.4 Long term (current) use of insulin; Z79.899 Other long term (current) drug therapy; Z90.89 Acquired absence of other organs; Z90.49 Acquired absence of other specified parts of digestive tract; Z91.19 Patient's noncompliance with other medical treatment and regimen; Z68.39 Body mass index [BMI] 39.0-39.9, adult; Z23 Encounter for immunization
CPT/HCPCS: 36415; 46040; 80048; 80053; 82962; 83036; 83735; 85025; 99284; A9270; G0378; J1815; J1817; J2250; J3010; J7120; 00902; 90686; 90732; 96372; G0008; G0009; J2704

== ENCOUNTER 2021-07-20 08:17 | Day surgery (SDC) | payer BC, OTHER ==
[~2021-07-20 08:17] MED LIST: Lactated Ringers 1,000 ML IV SCH; Lidocaine 1%/Sod Bicarbonate in NS 8.4% 1 ML Syringe IDERM PRN; Sodium Chloride 0.9% 10 ML Syringe FLUSH PRN; Sodium Chloride 0.9% 10 ML Syringe FLUSH SCH
[2021-07-20] MEDS ORDERED: Lidocaine 1% 5 ML VIAL ONE (08:50)
[2021-07-20] MEDS ORDERED: Propofol 200 MG/20 ML SDV ONE ×5 (08:50→11:28)
[2021-07-20] MEDS ORDERED: Bupivacaine 0.5%/EPINEPHrine 1:200,000 50 ML MDV ONE (09:29)
[2021-07-20] MEDS ORDERED: Lidocaine 1% with EPINEPHrine 1:100,000 20 ML MDV ONE (09:29)
[2021-07-20] MEDS ORDERED: fentaNYL 100 MCG/2 ML SDV ONE (11:11)
[2021-07-20] MEDS ORDERED: Acetaminophen/HYDROcodone 325-5 MG Tab PO SCH (12:44)
== END 2021-07-20 13:10 | disposition home or self-care (01) ==
LOC: JD.SDS 08:17
PROVIDERS: ATTEND Surgery
DX: Z12.11 Encounter for screening for malignant neoplasm of colon (principal); D12.3 Benign neoplasm of transverse colon; D12.0 Benign neoplasm of cecum; D12.4 Benign neoplasm of descending colon; D12.7 Benign neoplasm of rectosigmoid junction; K60.3 Anal fistula; I10 Essential (primary) hypertension; F17.210 Nicotine dependence, cigarettes, uncomplicated; E11.40 Type 2 diabetes mellitus with diabetic neuropathy, unspecified; E78.00 Pure hypercholesterolemia, unspecified; Z90.49 Acquired absence of other specified parts of digestive tract; Z98.890 Other specified postprocedural states; Z79.4 Long term (current) use of insulin; Z79.899 Other long term (current) drug therapy; Z79.82 Long term (current) use of aspirin
CPT/HCPCS: 45380; 45385; 46270; 82947; A9270; J2704; J3010; J3490; J7120

== ENCOUNTER 2023-12-04 09:44 | Emergency (ER) | payer OTHER ==
[2023-12-04 10:01] LABS: BASOPHILS PERCENT AUTO 0.3 % (0.0-1.0); EOSINOPHILS ABSOLUTE AUTO 0.3 K/mm3 (0.0-0.4); EOSINOPHILS PERCENT AUTO 3.4 % (0.0-6.0); HEMATOCRIT 33.9 % (42.0-52.0); HEMOGLOBIN 10.9 gm/dl (14.0-18.0); IMMATURE GRAN ABSOLUTE AUTO 0.05 K/mm3 (0.00-0.05); IMMATURE GRAN PERCENT AUTO 0.5 % (0.0-0.4); LYMPHOCYTES PERCENT AUTO 10.6 % (24.0-44.0); MEAN CORPUSCULAR HGB CONC 32.2 g/dl (32.0-36.0); MEAN CORPUSCULAR VOLUME 90.2 fl (83.0-99.0); MONOCYTES ABSOLUTE AUTO 0.7 K/mm3 (0.0-0.8); NEUTROPHILS ABSOLUTE AUTO 7.3 K/mm3 (1.8-7.7); NEUTROPHILS PERCENT AUTO 78.2 % (41.0-71.0); PLATELET COUNT,PLT 173 K/mm3 (150-400); RED BLOOD CELL COUNT 3.76 M/mm3 (4.52-5.90); WHITE BLOOD CELL COUNT,WBC 9.31 K/mm3 (3.9-11.3)
[2023-12-04 10:18] LABS: INR 0.97; PROTHROMBIN TIME 10.3 SECONDS (9.7-12.0)
[2023-12-04 10:28] LABS: ANION GAP 17.7 (5-15); BLOOD UREA NITROGEN,BUN 84 mg/dL (7-18); BUN/CREATININE RATIO 21.5 (14-18); CALCIUM 8.8 mg/dL (8.5-10.1); CARBON DIOXIDE,CO2 18 mEq/L (21-32); CHLORIDE,CL 107 mEq/L (98-107); CREATININE 3.9 mg/dL (0.7-1.3); ESTIMATED GFR 17 mL/min (>60); GLUCOSE RANDOM 112 mg/dL (70-99); POTASSIUM,K 5.7 mEq/L (3.5-5.1); SODIUM,NA 137 mEq/L (136-145)
[2023-12-04] MEDS: Sodium Chloride 0.9% 1,000 ML IV SCH (11:53)
[2023-12-04] MEDS: Metoprolol Tartrate 5 MG/5 ML SDV IVPUSH ONE ×2 (11:53→13:20)
[2023-12-04] MEDS: Lidocaine 1% 20 ML MDV INJECT ONE (13:35)
[2023-12-04 14:30] LABS: ANION GAP 16.1 (5-15); BLOOD UREA NITROGEN,BUN 77 mg/dL (7-18); BUN/CREATININE RATIO 20.8 (14-18); CALCIUM 8.2 mg/dL (8.5-10.1); CARBON DIOXIDE,CO2 18 mEq/L (21-32); CHLORIDE,CL 110 mEq/L (98-107); CREATININE 3.7 mg/dL (0.7-1.3); ESTIMATED GFR 18 mL/min (>60); GLUCOSE RANDOM 136 mg/dL (70-99); POTASSIUM,K 5.1 mEq/L (3.5-5.1); SODIUM,NA 139 mEq/L (136-145)
[2023-12-04] MEDS: amLODIPine 5 MG Tab PO ONE (15:03)
== END 2023-12-04 15:54 | disposition home or self-care (01) ==
LOC: JD.ED 09:44
DX: S01.01XA Laceration without foreign body of scalp, initial encounter (principal); S09.90XA Unspecified injury of head, initial encounter; N19 Unspecified kidney failure; E87.5 Hyperkalemia; I10 Essential (primary) hypertension; E11.9 Type 2 diabetes mellitus without complications; Z79.82 Long term (current) use of aspirin; Z79.890 Hormone replacement therapy; Z79.899 Other long term (current) drug therapy; W01.198A Fall on same level from slipping, tripping and stumbling with subsequent striking against other object, initial encounter
CPT/HCPCS: 12002; 36415; 70450; 80048; 85025; 85610; 93005; 96361; 96374; 96376; 99284; A9270; J3490; J7030; 93010

== ENCOUNTER 2024-03-13 13:38 | Emergency (ER) | payer OTHER ==
[2024-03-13 14:48] LABS: BASOPHILS PERCENT AUTO 0.4 % (0.0-1.0); EOSINOPHILS ABSOLUTE AUTO 0.4 K/mm3 (0.0-0.4); EOSINOPHILS PERCENT AUTO 6.5 % (0.0-6.0); HEMATOCRIT 26.9 % (42.0-52.0); HEMOGLOBIN 8.5 gm/dl (14.0-18.0); IMMATURE GRAN ABSOLUTE AUTO 0.04 K/mm3 (0.00-0.05); IMMATURE GRAN PERCENT AUTO 0.6 % (0.0-0.4); LYMPHOCYTES ABSOLUTE AUTO 1.4 K/mm3 (1.0-4.8); LYMPHOCYTES PERCENT AUTO 21.1 % (24.0-44.0); MEAN CORPUSCULAR HEMOGLOBIN 28.6 pg (28.0-32.0); MEAN CORPUSCULAR HGB CONC 31.6 g/dl (32.0-36.0); MEAN CORPUSCULAR VOLUME 90.6 fl (83.0-99.0); MEAN PLATELET VOLUME 10.2 fl (9.4-12.4); MONOCYTES ABSOLUTE AUTO 0.8 K/mm3 (0.0-0.8); MONOCYTES PERCENT AUTO 11.5 % (0.0-8.0); NEUTROPHILS ABSOLUTE AUTO 4.1 K/mm3 (1.8-7.7); NEUTROPHILS PERCENT AUTO 59.9 % (41.0-71.0); PLATELET COUNT,PLT 165 K/mm3 (150-400); RED BLOOD CELL COUNT 2.97 M/mm3 (4.52-5.90); WHITE BLOOD CELL COUNT,WBC 6.79 K/mm3 (3.9-11.3)
[2024-03-13 15:11] LABS: A/G RATIO 0.8 (1-2); ALBUMIN 2.6 g/dl (3.4-5.0); ANION GAP 17.8 (5-15); BILIRUBIN TOTAL 0.2 mg/dL (0.2-1.0); BUN/CREATININE RATIO 17.9 (14-18); CALCIUM 7.9 mg/dL (8.5-10.1); CREATININE 4.7 mg/dL (0.7-1.3); EST CRCL DRUG DOSING (CG) 17.89 mL/min; MAGNESIUM 1.6 mg/dL (1.8-2.4); PHOSPHORUS 5.6 mg/dL (2.6-4.7); POTASSIUM,K 5.8 mEq/L (3.5-5.1); PROTEIN TOTAL,TP 5.9 g/dl (6.4-8.2)
[2024-03-13 15:56] LABS: APPEARANCE,URINE CLEAR (Clear); BILIRUBIN,URINE NEGATIVE (Negative); COLOR,URINE LIGHT YELLOW (Yellow); GLUCOSE,URINE TRACE (Negative); KETONES,URINE NEGATIVE (Negative); LEUKOCYTE ESTERASE,URINE NEGATIVE (Negative); NITRITE,URINE NEGATIVE (Negative); OCCULT BLOOD,URINE TRACE-LYSED (Negative); PROTEIN,URINE 3+ (Negative); UROBILINOGEN,URINE 0.2 (0.2-1.0)
[2024-03-13 16:13] LABS: BACTERIA,URINE FEW /hpf (FEW); MUCUS,URINE FEW /hpf (FEW); RBC,URINE 0-5 /hpf (0-5); SQUAMOUS EPITHELIAL CELLS,UR 0-5 /hpf (0-5); WBC,URINE 0-5 /hpf (0-5)
[2024-03-13 16:21] LABS: BARBITURATE SCREEN,URINE NEGATIVE (CUTOFF=200); BENZODIAZEPINES SCREEN,URINE NEGATIVE (CUTOFF=150); BUPRENORPHINE SCREEN,URINE NEGATIVE (CUTOFF=10); METHADONE SCREEN, URINE NEGATIVE (CUT0FF=200); METHAMPHETAMINES SCREEN, URINE NEGATIVE (CUTOFF=500); OXYCODONE SCREEN,URINE NEGATIVE (CUT0FF=100); THC SCREEN,URINE 20 NG/ML NEGATIVE (CUTOFF=50)
[2024-03-13 16:42] LABS: AMPHETAMINES SCREEN, URINE NEGATIVE (CUTOFF=500)
== END 2024-03-13 16:40 | disposition left against medical advice (07) ==
LOC: JD.ED 13:38
DX: N17.9 Acute kidney failure, unspecified (principal); N18.9 Chronic kidney disease, unspecified; I10 Essential (primary) hypertension; E11.40 Type 2 diabetes mellitus with diabetic neuropathy, unspecified; Z90.49 Acquired absence of other specified parts of digestive tract; Z79.899 Other long term (current) drug therapy; Z79.4 Long term (current) use of insulin; Z79.890 Hormone replacement therapy; Z79.82 Long term (current) use of aspirin; Z53.20 Procedure and treatment not carried out because of patient's decision for unspecified reasons
CPT/HCPCS: 36415; 80053; 80306; 81001; 83690; 83735; 83880; 84100; 84484; 85025; 93005; 99283